=== PATIENT | male | born 1985 | race Caucasian/White ===

== ENCOUNTER 2019-04-10 12:25 | Inpatient (IN) | payer MEDICAID, OTHER ==
[2019-04-10] MEDS: ASPIRIN 325 MG TAB PO (13:11)
[2019-04-10] MEDS: PANTOPRAZOLE 40 MG INJ IV (13:11)
[2019-04-10] MEDS: ONDANSETRON 4 MG INJ IV (13:11)
[2019-04-10] MEDS: SODIUM CHLORIDE 0.9% 1L BAG IV* (13:12)
[2019-04-10 13:18] LABS: ADD MAN DIFF? NO
[2019-04-10 13:30] LABS: BASOPHIL # 0.1 10^3/ul (0.0-0.1); BASOPHILS % 0.4 % (0.0-2.0); EOSINOPHILS % 0.1 % (0.0-7.0); HEMATOCRIT 40.8 % (42.0-52.0); HEMOGLOBIN 12.9 g/dl (14.0-18.0); LYMPHOCYTES # 4.6 10^3/ul (0.8-2.9); LYMPHOCYTES % 36.1 % (15.0-51.0); MEAN CORPUSCULAR HEMOGLOBIN 28.4 pg (29.0-33.0); MEAN CORPUSCULAR HGB CONC 31.6 g/dl (32.0-37.0); MEAN CORPUSCULAR VOLUME 89.9 fl (82.0-101.0); MEAN PLATELET VOLUME 9.7 fl (7.4-10.4); MONOCYTES % 7.5 % (0.0-11.0); NEUTROPHIL # 6.9 10^3/ul (1.6-7.5); NEUTROPHILS % 54.9 % (39.0-77.0); PLATELET COUNT 388 10^3/UL (140-415); RED BLOOD COUNT 4.54 10^6/ul (4.70-6.10); RED CELL DISTRIBUTION WIDTH 13.5 % (11.5-14.5)
[2019-04-10 13:30] LABS: WHITE BLOOD COUNT 12.6 10^3/ul (4.8-10.8)
[2019-04-10 13:31] LABS: OCCULT BLOOD STOOL NEGATIVE (NEGATIVE)
[2019-04-10 13:50] LABS: INR 1.01; PROTIME 13.4 Sec (11.9-14.9)
[2019-04-10 13:52] LABS: ALANINE AMINOTRANSFERASE 28 IU/L (13-69); ALBUMIN 4.1 g/dl (3.3-4.9); ALBUMIN/GLOBULIN RATIO 1.32; ALKALINE PHOSPHATASE 48 IU/L (42-121); ANION GAP 14 (5-13); ASPARTATE AMINO TRANSFERASE 21 IU/L (15-46); BILIRUBIN,INDIRECT 0.4 mg/dl (0-1.1); BILIRUBIN,TOTAL 0.4 mg/dl (0.2-1.3); BLOOD UREA NITROGEN 42 mg/dl (7-20); CARBON DIOXIDE 22 mmol/L (21-31); CHLORIDE 108 mmol/L (97-110); Estimated GFR 53 mL/min (>60); GLUCOSE 132 mg/dl (70-220); LIPASE 46 U/L (23-300); POTASSIUM 3.8 mmol/L (3.5-5.1); SODIUM 144 mmol/L (135-144); TOTAL PROTEIN 7.2 g/dl (6.1-8.1)
[2019-04-10 13:56] LABS: PARTIAL THROMBOPLASTIN TIME 23.9 Sec (23.0-35.0)
[2019-04-10 14:03] LABS: TROPONIN-I < 0.012 ng/ml (0.000-0.120)
[2019-04-10] MEDS: SOD CHLORIDE 0.9% 100 ML (14:24)
[2019-04-10] MEDS: IODIXANOL LOCM 100 ML BTL (14:24)
[2019-04-10 15:03] LABS: ADD UMIC NO; UR ASCORBIC ACID NEGATIVE (NEGATIVE); UR BILIRUBIN (Dip) NEGATIVE (NEGATIVE); UR BLOOD (Dip) NEGATIVE (NEGATIVE); UR CLARITY SLIGHTLY CLOUDY (CLEAR); UR COLOR YELLOW (YELLOW); UR GLUCOSE (Dip) NEGATIVE (NEGATIVE); UR KETONES (Dip) NEGATIVE (NEGATIVE); UR LEUKOCYTE ESTERASE (Dip) NEGATIVE Leu/ul (NEGATIVE); UR MUCUS FEW /HPF (NONE SEEN); UR NITRITE (Dip) NEGATIVE (NEGATIVE); UR RBC 1 /HPF (0-5); UR SPECIFIC GRAVITY (Dip) 1.046 (1.003-1.030); UR TOTAL PROTEIN (Dip) NEGATIVE (NEGATIVE); UR UROBILINOGEN (Dip) NEGATIVE (NEGATIVE); UR WBC 3 /HPF (0-5)
[2019-04-10] MEDS: SOD CHLORIDE 0.9% 1,000 ML IV ×3 (15:40→22:17)
[2019-04-10] MEDS ORDERED: NACL 0.9% 3 ML SYG IV (16:00)
[2019-04-10] MEDS ORDERED: HYDROCODONE/APAP (5/325) TAB PO (16:00)
[2019-04-10] MEDS ORDERED: ACETAMINOPHEN 325 MG TAB PO (16:00)
[2019-04-10] MEDS ORDERED: hydrALAzine 20 MG INJ IV (16:00)
[2019-04-10] MEDS ORDERED: MAGNESIUM HYDROXIDE 30ML CUP PO (16:00)
[2019-04-10] MEDS ORDERED: NITROGLYCERIN (SL) 0.4 MG TAB SL (16:00)
[2019-04-10] MEDS ORDERED: ALBUTEROL/IPRATROPIUM (NEB) 3 ML AMP HHN (16:00)
[2019-04-10] MEDS ORDERED: DOCUSATE SODIUM 100 MG CAP PO (16:00)
[2019-04-10] MEDS: FAMOTIDINE 20 MG INJ IV (16:00)
[2019-04-10] MEDS ORDERED: LORAZEPAM 2 MG INJ IV (16:00)
[2019-04-10] MEDS ORDERED: ONDANSETRON 4 MG INJ IV (16:00)
[2019-04-10] MEDS ORDERED: morphine 2 MG INJ IV (16:00)
[2019-04-10 16:23] LABS: HAAIG REFLEX REFLEX FILED
[2019-04-10 16:34] LABS: CREATINE KINASE 104 IU/L (23-200)
[2019-04-10 16:41] LABS: LACTIC ACID 2.2 mmol/L (0.5-2.0)
[2019-04-10 16:44] LABS: HEMOGLOBIN A1C 5.5 % (0-5.9)
[2019-04-10 16:52] LABS: FREE T4 (FREE THYROXINE) 0.68 ng/dl (0.79-2.35)
[2019-04-10 17:06] LABS: HEPATITIS B SURFACE ANTIGEN NEGATIVE (NEGATIVE)
[2019-04-10 17:23] LABS: HEPATITIS B CORE ANTIBODY NEGATIVE (NEGATIVE); HEPATITIS C VIRAL ANTIBODY NEGATIVE (NEGATIVE); HIV 1&2 ANTIBODY NEGATIVE (NEGATIVE)
[2019-04-10 19:09] LABS: CREATINE KINASE 75 IU/L (23-200)
[2019-04-10 19:18] LABS: LACTIC ACID 1.6 mmol/L (0.5-2.0)
[2019-04-10 19:22] LABS: CK INDEX 0.9; CK-MB 0.69 ng/ml (0.0-2.4); TROPONIN-I < 0.012 ng/ml (0.000-0.120)
[2019-04-10] MEDS: PIPER-TAZO 3.375 GM IV (PMX) 100 ML IVPB ×2 (20:14→23:47)
[2019-04-10] MEDS ORDERED: HEPARIN 5,000 UNIT/1 ML VIAL SC (21:00)
[2019-04-10 21:07] LABS: INR 1.03; PARTIAL THROMBOPLASTIN TIME 25.7 Sec (23.0-35.0); PROTIME 13.6 Sec (11.9-14.9); PT RATIO 1.1
[2019-04-11 01:19] LABS: CREATINE KINASE 97 IU/L (23-200)
[2019-04-11 01:30] LABS: CK-MB 0.99 ng/ml (0.0-2.4); TROPONIN-I < 0.012 ng/ml (0.000-0.120)
[2019-04-11] MEDS: SOD CHLORIDE 0.9% 1,000 ML IV ×5 (02:38→19:21)
[2019-04-11 05:00] LABS: ADD MAN DIFF? NO
[2019-04-11 05:04] LABS: WHITE BLOOD COUNT 9.7 10^3/ul (4.8-10.8)
[2019-04-11 05:04] LABS: BASOPHILS % 0.4 % (0.0-2.0); EOSINOPHILS % 0.3 % (0.0-7.0); HEMATOCRIT 30.4 % (42.0-52.0); HEMOGLOBIN 9.5 g/dl (14.0-18.0); LYMPHOCYTES # 4.2 10^3/ul (0.8-2.9); LYMPHOCYTES % 43.9 % (15.0-51.0); MEAN CORPUSCULAR HEMOGLOBIN 28.4 pg (29.0-33.0); MEAN CORPUSCULAR HGB CONC 31.3 g/dl (32.0-37.0); MEAN CORPUSCULAR VOLUME 90.7 fl (82.0-101.0); MEAN PLATELET VOLUME 9.3 fl (7.4-10.4); MONOCYTE # 0.6 10^3/ul (0.3-0.9); MONOCYTES % 5.7 % (0.0-11.0); NEUTROPHIL # 4.8 10^3/ul (1.6-7.5); NEUTROPHILS % 49.3 % (39.0-77.0); PLATELET COUNT 298 10^3/UL (140-415); RED BLOOD COUNT 3.35 10^6/ul (4.70-6.10)
[2019-04-11 05:25] LABS: CHOLESTEROL 132 mg/dl (100-200)
[2019-04-11 05:25] LABS: CREATINE KINASE 105 IU/L (23-200); HDL CHOLESTEROL 22 mg/dl (28-63); LDL CHOLESTEROL,CALCULATED 70 mg/dl; TRIGLYCERIDES 199 mg/dl (0-149)
[2019-04-11 05:35] LABS: CK INDEX 1.2; TROPONIN-I < 0.012 ng/ml (0.000-0.120)
[2019-04-11 05:44] LABS: ANION GAP 3 (5-13); BLOOD UREA NITROGEN 21 mg/dl (7-20); CALCIUM 7.8 mg/dl (8.4-10.2); CARBON DIOXIDE 26 mmol/L (21-31); CHLORIDE 111 mmol/L (97-110); Estimated GFR > 60 mL/min (>60); GLUCOSE 96 mg/dl (70-220); MAGNESIUM 2.1 mg/dl (1.7-2.5); PHOSPHORUS 4.3 mg/dl (2.5-4.9); POTASSIUM 4.2 mmol/L (3.5-5.1); SODIUM 140 mmol/L (135-144)
[2019-04-11] MEDS: PIPER-TAZO 3.375 GM IV (PMX) 100 ML IVPB (05:55)
[2019-04-11 06:15] LABS: ADD UMIC YES; UR ASCORBIC ACID NEGATIVE (NEGATIVE); UR BACTERIA FEW /HPF (NONE SEEN); UR BILIRUBIN (Dip) NEGATIVE (NEGATIVE); UR BLOOD (Dip) NEGATIVE (NEGATIVE); UR CLARITY CLEAR (CLEAR); UR COLOR YELLOW (YELLOW); UR GLUCOSE (Dip) NEGATIVE (NEGATIVE); UR KETONES (Dip) NEGATIVE (NEGATIVE); UR LEUKOCYTE ESTERASE (Dip) TRACE Leu/ul (NEGATIVE); UR MUCUS FEW /HPF (NONE SEEN); UR NITRITE (Dip) NEGATIVE (NEGATIVE); UR RBC 2 /HPF (0-5); UR SPECIFIC GRAVITY (Dip) 1.035 (1.003-1.030); UR TOTAL PROTEIN (Dip) NEGATIVE (NEGATIVE); UR UROBILINOGEN (Dip) NEGATIVE (NEGATIVE); UR WBC 25 /HPF (0-5)
[2019-04-11 07:50] LABS: LACTIC ACID 1.1 mmol/L (0.5-2.0)
[2019-04-11 08:01] LABS: HEMOGLOBIN A1C 5.5 % (0-5.9)
[2019-04-11] MEDS: FAMOTIDINE 20 MG INJ IV (08:03)
[2019-04-11 08:17] LABS: CREATININE,URINE RANDOM 198.12 mg/dl (20-370)
[2019-04-11 08:17] LABS: SODIUM,URINE RANDOM 56 mmol/L (30-90)
[2019-04-11 12:40] LABS: LACTIC ACID 1.6 mmol/L (0.5-2.0)
[2019-04-11] MEDS ORDERED: LIDOCAINE 2% (SDV) 5 ML INJ (13:45)
[2019-04-11] MEDS ORDERED: PROPOFOL 20 ML (13:45)
[2019-04-11] MEDS ORDERED: morphine 2 MG INJ IV (14:00)
[2019-04-11] MEDS ORDERED: ONDANSETRON 4 MG INJ IV (14:00)
[2019-04-12] MEDS: SOD CHLORIDE 0.9% 1,000 ML IV (03:52)
[2019-04-12 06:00] LABS: ADD MAN DIFF? NO
[2019-04-12 06:19] LABS: WHITE BLOOD COUNT 7.3 10^3/ul (4.8-10.8)
[2019-04-12 06:19] LABS: BASOPHILS % 0.3 % (0.0-2.0); EOSINOPHILS # 0.1 10^3/ul (0.0-0.5); EOSINOPHILS % 1.5 % (0.0-7.0); HEMATOCRIT 29.6 % (42.0-52.0); HEMOGLOBIN 9.2 g/dl (14.0-18.0); LYMPHOCYTES # 3.5 10^3/ul (0.8-2.9); LYMPHOCYTES % 47.8 % (15.0-51.0); MEAN CORPUSCULAR HGB CONC 31.1 g/dl (32.0-37.0); MEAN CORPUSCULAR VOLUME 93.4 fl (82.0-101.0); MEAN PLATELET VOLUME 9.6 fl (7.4-10.4); MONOCYTE # 0.4 10^3/ul (0.3-0.9); MONOCYTES % 5.4 % (0.0-11.0); NEUTROPHIL # 3.2 10^3/ul (1.6-7.5); NEUTROPHILS % 44.2 % (39.0-77.0); PLATELET COUNT 259 10^3/UL (140-415); RED BLOOD COUNT 3.17 10^6/ul (4.70-6.10); RED CELL DISTRIBUTION WIDTH 14.2 % (11.5-14.5)
[2019-04-12 07:45] LABS: ANION GAP 4 (5-13); BLOOD UREA NITROGEN 13 mg/dl (7-20); CALCIUM 7.8 mg/dl (8.4-10.2); CARBON DIOXIDE 26 mmol/L (21-31); CHLORIDE 109 mmol/L (97-110); CREATININE 0.74 mg/dl (0.61-1.24); Estimated GFR > 60 mL/min (>60); GLUCOSE 90 mg/dl (70-220); POTASSIUM 4.5 mmol/L (3.5-5.1); SODIUM 139 mmol/L (135-144)
[2019-04-12] MEDS: FAMOTIDINE 20 MG INJ IV (09:14)
[2019-04-13 05:49] LABS: ADD MAN DIFF? NO
[2019-04-13 06:05] LABS: WHITE BLOOD COUNT 6.4 10^3/ul (4.8-10.8)
[2019-04-13 06:05] LABS: BASOPHILS % 0.3 % (0.0-2.0); EOSINOPHILS # 0.1 10^3/ul (0.0-0.5); EOSINOPHILS % 1.3 % (0.0-7.0); HEMATOCRIT 29.7 % (42.0-52.0); HEMOGLOBIN 9.2 g/dl (14.0-18.0); LYMPHOCYTES # 3.2 10^3/ul (0.8-2.9); LYMPHOCYTES % 49.8 % (15.0-51.0); MEAN CORPUSCULAR HEMOGLOBIN 28.8 pg (29.0-33.0); MEAN CORPUSCULAR VOLUME 93.1 fl (82.0-101.0); MEAN PLATELET VOLUME 9.6 fl (7.4-10.4); MONOCYTE # 0.3 10^3/ul (0.3-0.9); MONOCYTES % 4.5 % (0.0-11.0); NEUTROPHIL # 2.8 10^3/ul (1.6-7.5); NEUTROPHILS % 43.6 % (39.0-77.0); NUCLEATED RED BLOOD CELLS% 0.5 /100WBC (0.0-0.0); PLATELET COUNT 319 10^3/UL (140-415); RED BLOOD COUNT 3.19 10^6/ul (4.70-6.10)
[2019-04-13 06:42] LABS: ANION GAP 5 (5-13); BLOOD UREA NITROGEN 11 mg/dl (7-20); CALCIUM 8.5 mg/dl (8.4-10.2); CARBON DIOXIDE 31 mmol/L (21-31); CHLORIDE 104 mmol/L (97-110); CREATININE 0.83 mg/dl (0.61-1.24); Estimated GFR > 60 mL/min (>60); GLUCOSE 99 mg/dl (70-220); POTASSIUM 4.2 mmol/L (3.5-5.1); SODIUM 140 mmol/L (135-144)
[2019-04-13] MEDS: FAMOTIDINE 20 MG INJ IV (09:12)
[2019-04-14 15:16] LABS: CREATININE, RANDOM URINE 183 mg/dL (20-320); MICROALBUMIN 0.6 mg/dL; MICROALBUMIN/CREATININE RATIO 3 (<30)
== END 2019-04-13 15:02 | disposition home or self-care (01) | DRG 384 ==
LOC: PP2 04-11 11:50 → E/R 12:25 → ICU 17:04
PROC: 0DB68ZX Excision of Stomach, Via Natural or Artificial Opening Endoscopic, Diagnostic (ICD-10-PCS; principal; 2019-04-11 12:30)
PROC: 0DB78ZX Excision of Stomach, Pylorus, Via Natural or Artificial Opening Endoscopic, Diagnostic (ICD-10-PCS; 2019-04-11 12:30)
DX: K25.9 Gastric ulcer, unspecified as acute or chronic, without hemorrhage or perforation (principal); I95.9 Hypotension, unspecified; K26.9 Duodenal ulcer, unspecified as acute or chronic, without hemorrhage or perforation; K20.9 Esophagitis, unspecified; E86.0 Dehydration; R42 Dizziness and giddiness; K29.50 Unspecified chronic gastritis without bleeding; T39.315A Adverse effect of propionic acid derivatives, initial encounter; Y92.019 Unspecified place in single-family (private) house as the place of occurrence of the external cause; F17.200 Nicotine dependence, unspecified, uncomplicated; F98.8 Other specified behavioral and emotional disorders with onset usually occurring in childhood and adolescence
CPT/HCPCS: 36415; 71045; 71275; 74177; 80048; 80053; 80061; 81001; 81003; 82043; 82270; 82550; 82553; 82962; 83036; 83605; 83690; 83735; 84100; 84155; 84300; 84439; 84443; 84484; 85025; 85610; 85730; 86703; 86704; 86709; 86803; 86850; 86900; 86901; 87040-91; 87081; 87340; 88305; 88312; 93005; 93306; 96361; 96374; 96375; 97116; 97161; 97530; 99285-25